=== PATIENT | female | born 1990 | race Caucasian/White ===

== ENCOUNTER 2017-07-12 21:44 | Emergency (ER) | payer MEDICAID | END 2017-07-13 05:10 | disposition home or self-care (01) | LOC: FTE 21:44 | DX: N61.0 Mastitis without abscess (principal) | CPT/HCPCS: 99283; Z7502 ==

== ENCOUNTER 2017-07-28 09:00 | Emergency (ER) | payer MEDICAID | END 2017-07-28 13:46 | disposition home or self-care (01) | LOC: FTE 09:00 | DX: N64.4 Mastodynia (principal) | CPT/HCPCS: 71045; 76642; 93005; 99285-25 ==

== ENCOUNTER 2017-12-14 21:08 | Emergency (ER) | payer MEDICAID ==
[2017-12-14 23:53] LABS: ADD MAN DIFF? NO
[2017-12-14 23:56] LABS: BASOPHILS % 0.4 % (0.0-2.0); EOSINOPHILS # 0.1 10^3/ul (0.0-0.5); EOSINOPHILS % 1.2 % (0.0-7.0); HEMATOCRIT 40.8 % (37.0-47.0); HEMOGLOBIN 13.7 g/dl (12.0-16.0); LYMPHOCYTES # 3.2 10^3/ul (0.8-2.9); LYMPHOCYTES % 36.1 % (15.0-51.0); MEAN CORPUSCULAR HEMOGLOBIN 28.9 pg (29.0-33.0); MEAN CORPUSCULAR HGB CONC 33.6 g/dl (32.0-37.0); MEAN CORPUSCULAR VOLUME 86.1 fl (82.0-101.0); MEAN PLATELET VOLUME 10.3 fl (7.4-10.4); MONOCYTE # 0.6 10^3/ul (0.3-0.9); NEUTROPHIL # 4.9 10^3/ul (1.6-7.5); NEUTROPHILS % 55.1 % (39.0-77.0); PLATELET COUNT 289 10^3/UL (140-415); RED BLOOD COUNT 4.74 10^6/ul (4.20-5.40); RED CELL DISTRIBUTION WIDTH 12.8 % (11.5-14.5)
[2017-12-14 23:56] LABS: WHITE BLOOD COUNT 8.9 10^3/ul (4.8-10.8)
[2017-12-15 00:16] LABS: ANION GAP 12 (8-16); BLOOD UREA NITROGEN 9 mg/dl (7-20); CALCIUM 9.7 mg/dl (8.4-10.2); CARBON DIOXIDE 27 mmol/L (21-31); CHLORIDE 105 mmol/L (97-110); CREATININE 0.49 mg/dl (0.44-1.00); GLUCOSE 93 mg/dl (70-220); POTASSIUM 3.9 mmol/L (3.5-5.1); SODIUM 140 mmol/L (135-144)
== END 2017-12-15 01:11 | disposition home or self-care (01) ==
LOC: FTE 12-15 01:11
DX: R21 Rash and other nonspecific skin eruption (principal)
CPT/HCPCS: 80048; 82962; 85025; 99283